=== PATIENT | female | born 1995 | race Caucasian/White ===

== ENCOUNTER 2017-04-19 04:21 | Emergency (ER) | payer SELFPAY ==
[~2017-04-19] VITALS: Ht 180.3 cm; Wt 72.0 kg
[2017-04-19 04:38] VITALS: BP 94/54; PULSE 110; RESP 21; TEMP 98.2; O2SAT 100
[2017-04-19] MEDS ORDERED: ZIPR20 PO (04:44)
[2017-04-19] MEDS ORDERED: VIST50CA PO (04:44)
[2017-04-19] MEDS ORDERED: DICY10 PO (04:44)
[2017-04-19] MEDS ORDERED: ORPHENADRINE INJ 60 MG/2 ML AMP IV ONE (04:45)
[2017-04-19] MEDS ORDERED: SODIUM CHLOR 0.9% 1000 ML INJ 1,000 ML IV SCH (04:45)
[2017-04-19] MEDS ORDERED: SODIUM CHLORIDE 0.9% FLUSH 10 ML FLUSH IV FLUSH PRN (04:45)
[2017-04-19 04:57] VITALS: O2SAT 96
--- NOTE | 2017-04-19 05:00 | PD ---
HPI Chief Complaint: Injury Time Seen by Provider: 04:38 Travel History International Travel<30 days: No Contact w/Intl Traveler<30days: No Traveled to known affect area: No History of Present Illness HPI Patient is a 21-year-old female presenting to emergency for evaluation of left lower leg muscle spasms. Patient states she twisted her knee yesterday and since that time she's been unable to stop the muscle spasms. Patient is diaphoretic, tachycardic, she states that she is not on any medications and has not use any drugs. She is tearful, agitated. She is not forthcoming with any other information. PFSH Past Medical History Bipolar Disorder: Yes Anxiety: Yes Depression: Yes Diminished Hearing: No ?: Not Past Surgical History Surgical History: No Previous Surgery Social History Alcohol Use: Yes (OCC) Tobacco Use: Yes Substance Use: Yes (MARIJUANA) Allergies-Medications (Allergen,Severity, Reaction): Coded Allergies: latex (Verified Allergy, Unknown, 04/19/17) Reported Meds & Prescriptions Reported Meds & Active Scripts Active Reported Vistaril (Hydroxyzine Pamoate) 50 Mg Cap 50 Mg PO TID Bentyl (Dicyclomine HCl) 10 Mg Cap 10 Mg PO QID Geodon (Ziprasidone) 20 Mg Cap 20 Mg PO BID Review of Systems Except as stated in HPI: all other systems reviewed are Neg Musculoskeletal: Positive: Myalgias, Arthralgias, Cramping Physical Exam Narrative GENERAL: Well-developed, well-nourished, agitated-appearing female. SKIN: Diaphoretic HEAD: Atraumatic. Normocephalic. EYES: Pupils equal and round. No scleral icterus. No injection or drainage. ENT: No nasal bleeding or discharge. Mucous membranes pink and moist. NECK: Trachea midline. No JVD. CARDIOVASCULAR: Tachycardic. RESPIRATORY: No accessory muscle use. Clear to auscultation. Breath sounds equal bilaterally. GASTROINTESTINAL: Abdomen soft, non-tender, nondistended. Hepatic and splenic margins not palpable. MUSCULOSKELETAL: Extremities without clubbing, cyanosis, or edema. No obvious deformities. NEUROLOGICAL: Awake and alert. No obvious cranial nerve deficits. Motor grossly within normal limits. Five out of 5 muscle strength in the arms and legs. Normal speech. PSYCHIATRIC: Appropriate mood and affect; insight and judgment normal. Data Data Last Documented VS Vital Signs Date Time Temp Pulse Resp B/P (MAP) Pulse Ox O2 Delivery O2 Flow Rate FiO2 04/19/17 06:19 124 19 154/89 (110) 96 Room Air 04/19/17 04:38 98.2 Orders Orders Complete Blood Count With Diff (04/19/17 04:45) Comprehensive Metabolic Panel (04/19/17 04:45) Creatine Kinase (Cpk) (04/19/17 04:45) Ecg Monitoring (04/19/17 04:45) Iv Access Insert/Monitor (04/19/17 04:45) Oximetry (04/19/17 04:45) Sodium Chloride 0.9% Flush (Ns Flush) (04/19/17 04:45) Sodium Chlor 0.9% 1000 Ml Inj (Ns 1000 M (04/19/17 04:45) Drug Screen, Random Urine (04/19/17 04:45) Orphenadrine Inj (Norflex Inj) (04/19/17 04:45) Ketorolac Inj (Toradol Inj) (04/19/17 06:00) Sodium Chlor 0.9% 1000 Ml Inj (Ns 1000 M (04/19/17 06:00) Ed Urine Pregnancytest Poc (04/19/17 06:21) Knee, Complete (4vws) (04/19/17 ) Labs Laboratory Tests Test 04/19/17 04:53 04/19/17 06:14 White Blood Count 14.3 TH/MM3 Red Blood Count 5.06 MIL/MM3 Hemoglobin 14.2 GM/DL Hematocrit 42.0 % Mean Corpuscular Volume 83.1 FL Mean Corpuscular Hemoglobin 28.0 PG Mean Corpuscular Hemoglobin Concent 33.7 % Red Cell Distribution Width 13.0 % Platelet Count 341 TH/MM3 Mean Platelet Volume 7.9 FL Neutrophils (%) (Auto) 64.7 % Lymphocytes (%) (Auto) 22.6 % Monocytes (%) (Auto) 8.7 % Eosinophils (%) (Auto) 3.1 % Basophils (%) (Auto) 0.9 % Neutrophils # (Auto) 9.3 TH/MM3 Lymphocytes # (Auto) 3.2 TH/MM3 Monocytes # (Auto) 1.2 TH/MM3 Eosinophils # (Auto) 0.4 TH/MM3 Basophils # (Auto) 0.1 TH/MM3 CBC Comment AUTO DIFF Differential Total Cells Counted 100 Neutrophils % (Manual) 63 % Band Neutrophils % 1 % Lymphocytes % 26 % Monocytes % 7 % Eosinophils % 2 % Neutrophils # (Manual) 9.3 TH/MM3 Myelocytes 1 % Differential Comment FINAL DIFF MANUAL Atypical Lymphocytes % Toxic Vacuolation PRESENT Platelet Estimate NORMAL Platelet Morphology Comment NORMAL Red Cell Morphology Comment NORMAL Blood Urea Nitrogen 20 MG/DL Creatinine 1.10 MG/DL Random Glucose 87 MG/DL Total Protein 7.9 GM/DL Albumin 4.3 GM/DL Calcium Level 9.2 MG/DL Alkaline Phosphatase 84 U/L Aspartate Amino Transf (AST/SGOT) 12 U/L Alanine Aminotransferase (ALT/SGPT) 18 U/L Total Bilirubin 0.8 MG/DL Sodium Level 137 MEQ/L Potassium Level 3.9 MEQ/L Chloride Level 103 MEQ/L Carbon Dioxide Level 24.9 MEQ/L Anion Gap 9 MEQ/L Estimat Glomerular Filtration Rate 62 ML/MIN Total Creatine Kinase 74 U/L MDM Medical Decision Making Medical Screen Exam Complete: Yes Emergency Medical Condition: Yes Interpretation(s) Vital Signs Date Time Temp Pulse Resp B/P (MAP) Pulse Ox O2 Delivery O2 Flow Rate FiO2 04/19/17 04:57 96 Room Air 04/19/17 04:38 98.2 110 21 94/54 (67) 100 Room Air Differential Diagnosis Intoxication versus muscle spasm versus metabolic abnormality versus other Narrative Course Patient is a 21-year-old female that presented to emergency department evaluation of possible spasms. Patient was diaphoretic, agitated, tearful on arrival. Labs and imaging ordered and pending to rule out electrolyte abnormality. Norflex ordered for muscle spasms. Patient was able to provide a urine sample, urine is negative. Urine drug screen is pending. Patient did admit to RN that she attempted to overdose on Benadryl at the beginning of February. She denies any illicit drug use or overmedication this time. Patient was given Toradol for pain and another liter of IV fluids. X-ray of the left knee ordered and pending. CBC with a white count of 14.3 Chemistry with a BUN/creatinine 20/1.11 otherwise no acute abnormalities. Patient continues to be tachycardic with a heart rate of 124. Patient is agitated and shaking. Care of patient transferred to Deysi KEENE. Mary Srivastava Apr 19, 2017 05:00
[2017-04-19 05:15] LABS: AUTOMATED NEUTROPHIL # 9.3 TH/MM3 (1.8-7.7); BASOPHIL # 0.1 TH/MM3 (0-0.2); BASOPHIL % 0.9 % (0.0-2.0); EOSINOPHIL # 0.4 TH/MM3 (0-0.4); EOSINOPHIL % 3.1 % (0.0-4.0); HEMOGLOBIN 14.2 GM/DL (11.6-15.3); LYMPH % 22.6 % (9.0-44.0); LYMPHOCYTE # 3.2 TH/MM3 (1.0-4.8); MEAN CELL VOLUME 83.1 FL (80.0-100.0); MEAN CORPUSCULAR HGB CONC 33.7 % (32.0-36.0); MEAN PLATELET VOLUME 7.9 FL (7.0-11.0); MONO % 8.7 % (0.0-8.0); MONOCYTE # 1.2 TH/MM3 (0-0.9); NEUT % 64.7 % (16.0-70.0); PLATELET COUNT 341 TH/MM3 (150-450); RED BLOOD COUNT 5.06 MIL/MM3 (4.00-5.30); WHITE BLOOD COUNT 14.3 TH/MM3 (4.0-11.0)
[2017-04-19 05:41] LABS: ALBUMIN 4.3 GM/DL (3.4-5.0); AST (GOT) 12 U/L (15-37); BICARBONATE 24.9 MEQ/L (21.0-32.0); BLOOD UREA NITROGEN 20 MG/DL (7-18); CALCIUM 9.2 MG/DL (8.5-10.1); CHLORIDE 103 MEQ/L (98-107); GLOMERULAR FILTRATION RATE 62 ML/MIN (>89); GLUCOSE,RANDOM 87 MG/DL (74-106); SODIUM (NA) 137 MEQ/L (136-145)
[2017-04-19 05:43] LABS: ALT (GPT) 18 U/L (10-53)
[2017-04-19 05:45] LABS: ALKALINE PHOSPHATASE 84 U/L (45-117); TOTAL BILIRUBIN ADULT 0.8 MG/DL (0.2-1.0); TOTAL PROTEIN 7.9 GM/DL (6.4-8.2)
[2017-04-19 05:48] LABS: BANDS 1 % (0-6); LYMPHOCYTES 26 % (9-44); MONOCYTES 7 % (0-8); MYELOCYTES 1 % (0-0); NEUTROPHIL # MANUAL DIFF 9.3 TH/MM3 (1.8-7.7); POLYS (SEG NEUTROPHILS) 63 % (16-70)
[2017-04-19 05:49] VITALS: BP 139/99; PULSE 120; RESP 20; O2SAT 96
[2017-04-19 05:49] LABS: TOXIC VACUOLATION PRESENT (NONE SEEN)
[2017-04-19] MEDS ORDERED: KETOROLAC TROMETHAMINE 30 MG/ML (IVP) VIAL IV PUSH ONE (06:00)
[2017-04-19] MEDS ORDERED: SODIUM CHLOR 0.9% 1000 ML INJ 1,000 ML IV ONE (06:00)
[2017-04-19 06:19] VITALS: BP 154/89; PULSE 124; RESP 19; O2SAT 96
--- NOTE | 2017-04-19 07:08 | RADRPT ---
EXAM DATE/TIME: 04/19/2017 06:36 [facility] COMPARISON: No previous studies available for comparison. INDICATIONS : Left leg spasms. Pain in posterior left knee. MEDICAL HISTORY : None. SURGICAL HISTORY : None. ENCOUNTER: Initial ACUITY: 1 day PAIN SCORE: 5/10 LOCATION: Left knee FINDINGS: No definite fractures, or dislocations are identified. No definite lytic or sclerotic lesion is seen. The joint spaces are well maintained. CONCLUSION: Unremarkable study. Herman Celaya MD on April 19, 2017 at 6:59 Board Certified Radiologist. This report was verified electronically.
[2017-04-19 07:53] VITALS: BP 140/73; PULSE 97; RESP 18; O2SAT 97
[2017-04-19] MEDS ORDERED: IBUP1TAB7 PO (07:55)
[2017-04-19] MEDS ORDERED: ROBA500T PO (07:55)
--- NOTE | 2017-04-19 07:59 | PD ---
Physical Exam Time Seen by Provider: 07:49 Narrative See YECENIA Preston's initial note for history of present illness, physical examination and evaluation. Report received at change of shift. Left knee x- ray and drug screen pending. Data Data Last Documented VS Vital Signs Date Time Temp Pulse Resp B/P (MAP) Pulse Ox O2 Delivery O2 Flow Rate FiO2 04/19/17 08:27 04/19/17 07:53 97 18 97 Room Air 04/19/17 04:38 98.2 Orders Orders Complete Blood Count With Diff (04/19/17 04:45) Comprehensive Metabolic Panel (04/19/17 04:45) Creatine Kinase (Cpk) (04/19/17 04:45) Ecg Monitoring (04/19/17 04:45) Iv Access Insert/Monitor (04/19/17 04:45) Oximetry (04/19/17 04:45) Sodium Chloride 0.9% Flush (Ns Flush) (04/19/17 04:45) Sodium Chlor 0.9% 1000 Ml Inj (Ns 1000 M (04/19/17 04:45) Drug Screen, Random Urine (04/19/17 04:45) Orphenadrine Inj (Norflex Inj) (04/19/17 04:45) Ketorolac Inj (Toradol Inj) (04/19/17 06:00) Sodium Chlor 0.9% 1000 Ml Inj (Ns 1000 M (04/19/17 06:00) Ed Urine Pregnancytest Poc (04/19/17 06:21) Knee, Complete (4vws) (04/19/17 ) Splint Or Brace Apply/Monitor (04/19/17 07:59) Crutches (04/19/17 07:59) Ed Discharge Order (04/19/17 07:59) Labs Laboratory Tests Test 04/19/17 04:53 04/19/17 06:14 White Blood Count 14.3 TH/MM3 Red Blood Count 5.06 MIL/MM3 Hemoglobin 14.2 GM/DL Hematocrit 42.0 % Mean Corpuscular Volume 83.1 FL Mean Corpuscular Hemoglobin 28.0 PG Mean Corpuscular Hemoglobin Concent 33.7 % Red Cell Distribution Width 13.0 % Platelet Count 341 TH/MM3 Mean Platelet Volume 7.9 FL Neutrophils (%) (Auto) 64.7 % Lymphocytes (%) (Auto) 22.6 % Monocytes (%) (Auto) 8.7 % Eosinophils (%) (Auto) 3.1 % Basophils (%) (Auto) 0.9 % Neutrophils # (Auto) 9.3 TH/MM3 Lymphocytes # (Auto) 3.2 TH/MM3 Monocytes # (Auto) 1.2 TH/MM3 Eosinophils # (Auto) 0.4 TH/MM3 Basophils # (Auto) 0.1 TH/MM3 CBC Comment AUTO DIFF Differential Total Cells Counted 100 Neutrophils % (Manual) 63 % Band Neutrophils % 1 % Lymphocytes % 26 % Monocytes % 7 % Eosinophils % 2 % Neutrophils # (Manual) 9.3 TH/MM3 Myelocytes 1 % Differential Comment FINAL DIFF MANUAL Atypical Lymphocytes % Toxic Vacuolation PRESENT Platelet Estimate NORMAL Platelet Morphology Comment NORMAL Red Cell Morphology Comment NORMAL Blood Urea Nitrogen 20 MG/DL Creatinine 1.10 MG/DL Random Glucose 87 MG/DL Total Protein 7.9 GM/DL Albumin 4.3 GM/DL Calcium Level 9.2 MG/DL Alkaline Phosphatase 84 U/L Aspartate Amino Transf (AST/SGOT) 12 U/L Alanine Aminotransferase (ALT/SGPT) 18 U/L Total Bilirubin 0.8 MG/DL Sodium Level 137 MEQ/L Potassium Level 3.9 MEQ/L Chloride Level 103 MEQ/L Carbon Dioxide Level 24.9 MEQ/L Anion Gap 9 MEQ/L Estimat Glomerular Filtration Rate 62 ML/MIN Total Creatine Kinase 74 U/L Urine Opiates Screen POS Urine Barbiturates Screen NEG Urine Amphetamines Screen NEG Urine Benzodiazepines Screen NEG Urine Cocaine Screen POS Urine Cannabinoids Screen NEG MDM Supervised Visit with PJ: No Narrative Course Report received from YECENIA Preston at change of shift. See her note for initial history of present illness, physical assessment and evaluation. 0758: Patient positive for opiates and cocaine. Left knee x-ray concludes: Knee X-Ray 04/19/17 0000 Signed Impressions: Service Date/Time: Wednesday, April 19, 2017 06:36 - CONCLUSION: Unremarkable study. Herman Celaya MD Provided a copy of the x-ray report. Thierry bandage and crutches provided for support. Robaxin and ibuprofen prescribed for home. Instructed patient to follow up with orthopedics symptoms persist greater than 7-10 days. Instructed patient to follow up with primary care provider. Patient verbalizes understanding and agreement with treatment plan. Patient is medically cleared and stable for discharge. Discussed reasons to return to the emergency department. Patient agrees with treatment plan. The patients vital signs are stable and the patient is stable for outpatient follow-up and treatment. Patient discharged home, stable and in no acute distress. Diagnosis Primary Impression: Left knee injury Qualified Codes: S89.92XA - Unspecified injury of left lower leg, initial encounter Additional Impressions: Muscle spasm of left lower extremity Polysubstance abuse Referrals: [facility] Primary Care Physician Patient Instructions: General Instructions, Knee Sprain (ED), Muscle Spasm (ED) Additional Instruction: Tylenol or ibuprofen as needed and as directed to reduce pain and inflammation Rest, ice, compress, and elevate extremity to decrease pain and inflammation Knee brace for support Crutches for support Avoid aggravating activity; increase activity as tolerated Follow-up with primary care provider Follow-up with orthopedics Return to the emergency department immediately with worsening symptoms Med/Other Pt SpecificInfo: Prescription(s) given Scripts Ibuprofen (Ibuprofen) 800 Mg Tab 800 MG PO Q6HR Y for PAIN, #30 TAB 0 Refills Prov: Deysi Moore 04/19/17 Methocarbamol (Robaxin) 500 Mg Tab 500 MG PO QID Y for MUSCLE SPASM, #30 TAB 0 Refills Prov: Deysi Moore 04/19/17 Disposition: 01 DISCHARGE HOME Condition: Stable Deysi Moore Apr 19, 2017 07:59
== END 2017-04-19 08:29 | disposition home or self-care (01) ==
LOC: NEPD 04:21
DX: M62.831 Muscle spasm of calf (principal); S89.92XA Unspecified injury of left lower leg, initial encounter; F19.10 Other psychoactive substance abuse, uncomplicated; R00.0 Tachycardia, unspecified; F31.9 Bipolar disorder, unspecified; F41.9 Anxiety disorder, unspecified; X50.1XXA Overexertion from prolonged static or awkward postures, initial encounter; Z72.0 Tobacco use; Z79.899 Other long term (current) drug therapy
CPT/HCPCS: 73564; 80053; 80307; 82550; 84703; 85007; 85027; 96361; 96374; 96375; 99284; E0113; J1885; J2360; J7030

== ENCOUNTER 2017-08-06 03:08 | Emergency (ER) | payer OTHER ==
[~2017-08-06 03:08] MED LIST: DICY10 PO; IBUP1TAB7 PO; ROBA500T PO; VIST50CA PO; ZIPR20 PO
[2017-08-06 03:19] VITALS: BP 135/77; PULSE 97; RESP 16; O2SAT 96
[2017-08-06] MEDS ORDERED: LACTATED RINGER'S 1000 ML INJ 1,000 ML IV SCH (03:24)
[2017-08-06 03:30] VITALS: O2SAT 98
[2017-08-06] MEDS ORDERED: MORPHINE SULFATE 4 MG/ML INJ IV PUSH ONE (03:30)
[2017-08-06] MEDS ORDERED: SODIUM CHLORIDE 0.9% FLUSH 10 ML FLUSH IVF PRN (03:30)
--- NOTE | 2017-08-06 04:02 | RADRPT ---
EXAM DATE/TIME: 08/06/2017 03:50 [facility] COMPARISON: No previous studies available for comparison. INDICATIONS : Shortness of breath. MEDICAL HISTORY : None. SURGICAL HISTORY : None. ENCOUNTER: Initial ACUITY: 1 day PAIN SCORE: 7/10 LOCATION: Bilateral chest FINDINGS: A single view of the chest demonstrates the lungs to be symmetrically aerated without evidence of mas s, infiltrate or effusion. The cardiomediastinal contours are unremarkable. Osseous structures are intact. CONCLUSION: No acute disease. Dakota Haines MD on August 06, 2017 at 4:00 Board Certified Radiologist. This report was verified electronically.
[2017-08-06 04:03] LABS: AUTOMATED NEUTROPHIL # 3.9 TH/MM3 (1.8-7.7); BASOPHIL # 0.1 TH/MM3 (0-0.2); BASOPHIL % 1.3 % (0.0-2.0); EOSINOPHIL # 0.3 TH/MM3 (0-0.4); EOSINOPHIL % 4.3 % (0.0-4.0); HEMATOCRIT 38.3 % (35.0-46.0); HEMOGLOBIN 13.1 GM/DL (11.6-15.3); LYMPHOCYTE # 1.8 TH/MM3 (1.0-4.8); MEAN CELL VOLUME 75.2 FL (80.0-100.0); MEAN CORPUSCULAR HEMOGLOBIN 25.8 PG (27.0-34.0); MEAN CORPUSCULAR HGB CONC 34.2 % (32.0-36.0); MEAN PLATELET VOLUME 8.4 FL (7.0-11.0); MONO % 11.5 % (0.0-8.0); MONOCYTE # 0.8 TH/MM3 (0-0.9); NEUT % 56.9 % (16.0-70.0); PLATELET COUNT 297 TH/MM3 (150-450); RED BLOOD COUNT 5.09 MIL/MM3 (4.00-5.30); RED CELL DISTRIBUTION WIDTH 15.1 % (11.6-17.2); WHITE BLOOD COUNT 6.8 TH/MM3 (4.0-11.0)
[2017-08-06 04:18] LABS: ALBUMIN 3.7 GM/DL (3.4-5.0); AST (GOT) 343 U/L (15-37); BICARBONATE 19.3 MEQ/L (21.0-32.0); BLOOD UREA NITROGEN 17 MG/DL (7-18); CALCIUM 9.5 MG/DL (8.5-10.1); CHLORIDE 108 MEQ/L (98-107); CREATININE 0.84 MG/DL (0.50-1.00); GLOMERULAR FILTRATION RATE 83 ML/MIN (>89); GLUCOSE,RANDOM 73 MG/DL (74-106); SODIUM (NA) 139 MEQ/L (136-145)
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
[2017-08-06 04:19] LABS: ALT (GPT) 386 U/L (10-53)
[2017-08-06] MEDS ORDERED: IOHEXOL 350 MG/ML 10 ML VIAL (for RAD DIAG) IVCONTRAST ONE (04:20)
[2017-08-06 04:22] LABS: ALKALINE PHOSPHATASE 147 U/L (45-117); TOTAL BILIRUBIN ADULT 1.4 MG/DL (0.2-1.0); TOTAL PROTEIN 7.9 GM/DL (6.4-8.2)
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
[2017-08-06] MEDS ORDERED: KETOROLAC TROMETHAMINE 30 MG/ML (IVP) VIAL IV PUSH ONE (04:45)
[2017-08-06] MEDS ORDERED: SODIUM CHLOR 0.9% 1000 ML INJ 1,000 ML IV ONE ×2 (05:15)
[2017-08-06 06:33] LABS: ALBUMIN 2.8 GM/DL (3.4-5.0); ALKALINE PHOSPHATASE 114 U/L (45-117); ALT (GPT) 295 U/L (10-53); AST (GOT) 263 U/L (15-37); BLOOD UREA NITROGEN 15 MG/DL (7-18); CALCIUM 7.8 MG/DL (8.5-10.1); CHLORIDE 111 MEQ/L (98-107); CREATININE 0.63 MG/DL (0.50-1.00); GLOMERULAR FILTRATION RATE 116 ML/MIN (>89); GLUCOSE,RANDOM 67 MG/DL (74-106); SODIUM (NA) 141 MEQ/L (136-145); TOTAL BILIRUBIN ADULT 1.2 MG/DL (0.2-1.0); TOTAL PROTEIN 6.1 GM/DL (6.4-8.2)
[2017-08-06 06:48] VITALS: BP 135/62; PULSE 98; RESP 16; O2SAT 98
[2017-08-06 07:22] VITALS: BP 118/73; PULSE 95; RESP 19; O2SAT 97
[2017-08-06 07:29] VITALS: RESP 17
[2017-08-06 07:38] LABS: BACTERIA, URINE RARE /hpf; BILIRUBIN, URINE NEG (NEG); BLOOD, URINE NEG (NEG); GLUCOSE,URINE NEG (NEG); KETONE, URINE 40 mg/dL (NEG); MUCUS URINE FEW /lpf (OCC); NITRITE,URINE NEG (NEG); RENAL EPITHELIAL CELLS <1 /hpf; SQUAMOUS EPITHELIAL CELL URINE 4 /hpf (0-5); URINE COLOR YELLOW (YELLW/STRAW); URINE LEUKOCYTE ESTERASE LARGE (NEG)
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
--- NOTE | 2017-08-06 14:07 | PD ---
Physical Exam Date Seen by Provider: August 06, 2017 Time Seen by Provider: 14:06 Narrative 22-year-old female previously Alberts acted and medically cleared for psychiatric evaluation, has been seen and evaluated by psychiatric staff and deemed psychiatrically stable for discharge at this time. Patient remains medically stable for discharge. Follow-up will be based on psychiatric note. Data Data Last Documented VS Vital Signs Date Time Temp Pulse Resp B/P (MAP) Pulse Ox O2 Delivery O2 Flow Rate FiO2 08/06/17 07:29 17 08/06/17 07:22 95 118/73 (88) 97 Room Air Orders Orders Complete Blood Count With Diff (08/06/17 03:24) Alcohol (Ethanol) (08/06/17 03:24) Chest, Single Ap (08/06/17 03:24) Ct Brain W/O Iv Contrast(Rout) (08/06/17 03:24) Ct Cerv Spine W/O Contrast (08/06/17 03:24) Ct Abd/Pel W Iv Contrast(Rout) (08/06/17 03:24) Ct Thorax/ Chest W Iv Contrast (08/06/17 03:24) Apply Cervical Collar (08/06/17 03:24) Iv Access Insert/Monitor (08/06/17 03:24) Ecg Monitoring (08/06/17 03:24) Oximetry (08/06/17 03:24) Oxygen Administration (08/06/17 03:24) Morphine Inj (Morphine Inj) (08/06/17 03:30) Lactated Ringer's 1000 Ml Inj (Lr 1000 M (08/06/17 03:24) Sodium Chloride 0.9% Flush (Ns Flush) (08/06/17 03:30) Drug Screen, Random Urine (08/06/17 03:24) Comprehensive Metabolic Panel (08/06/17 03:24) Urinalysis - C+S If Indicated (08/06/17 03:24) Ed Urine Pregnancytest Poc (08/06/17 03:24) Ketorolac Inj (Toradol Inj) (08/06/17 04:45) Iohexol 350 Inj (Omnipaque 350 Inj) (08/06/17 04:20) Sodium Chlor 0.9% 1000 Ml Inj (Ns 1000 M (08/06/17 05:15) Sodium Chlor 0.9% 1000 Ml Inj (Ns 1000 M (08/06/17 05:15) Comprehensive Metabolic Panel (08/06/17 05:54) Urine Culture (08/06/17 07:00) Psych Screen (08/06/17 10:18) Diet Regular Basic (08/06/17 Lunch) Labs Laboratory Tests Test 08/06/17 03:31 08/06/17 05:55 08/06/17 07:00 White Blood Count 6.8 TH/MM3 Red Blood Count 5.09 MIL/MM3 Hemoglobin 13.1 GM/DL Hematocrit 38.3 % Mean Corpuscular Volume 75.2 FL Mean Corpuscular Hemoglobin 25.8 PG Mean Corpuscular Hemoglobin Concent 34.2 % Red Cell Distribution Width 15.1 % Platelet Count 297 TH/MM3 Mean Platelet Volume 8.4 FL Neutrophils (%) (Auto) 56.9 % Lymphocytes (%) (Auto) 26.0 % Monocytes (%) (Auto) 11.5 % Eosinophils (%) (Auto) 4.3 % Basophils (%) (Auto) 1.3 % Neutrophils # (Auto) 3.9 TH/MM3 Lymphocytes # (Auto) 1.8 TH/MM3 Monocytes # (Auto) 0.8 TH/MM3 Eosinophils # (Auto) 0.3 TH/MM3 Basophils # (Auto) 0.1 TH/MM3 CBC Comment DIFF FINAL Differential Comment Blood Urea Nitrogen 17 MG/DL 15 MG/DL Creatinine 0.84 MG/DL 0.63 MG/DL Random Glucose 73 MG/DL 67 MG/DL Total Protein 7.9 GM/DL 6.1 GM/DL Albumin 3.7 GM/DL 2.8 GM/DL Calcium Level 9.5 MG/DL 7.8 MG/DL Alkaline Phosphatase 147 U/L 114 U/L Aspartate Amino Transf (AST/SGOT) 343 U/L 263 U/L Alanine Aminotransferase (ALT/SGPT) 386 U/L 295 U/L Total Bilirubin 1.4 MG/DL 1.2 MG/DL Sodium Level 139 MEQ/L 141 MEQ/L Potassium Level 3.8 MEQ/L 3.6 MEQ/L Chloride Level 108 MEQ/L 111 MEQ/L Carbon Dioxide Level 19.3 MEQ/L 19.0 MEQ/L Anion Gap 12 MEQ/L 11 MEQ/L Estimat Glomerular Filtration Rate 83 ML/MIN 116 ML/MIN Ethyl Alcohol Level LESS THAN 3 MG/DL Urine Color YELLOW Urine Turbidity HAZY Urine pH 6.0 Urine Specific [place] GREATER THAN 1.050 Urine Protein 30 mg/dL Urine Glucose (UA) NEG mg/dL Urine Ketones 40 mg/dL Urine Occult Blood NEG Urine Nitrite NEG Urine Bilirubin NEG Urine Urobilinogen 2.0 MG/DL Urine Leukocyte Esterase LARGE Urine RBC 8 /hpf Urine WBC 65 /hpf Urine Squamous Epithelial Cells 4 /hpf Urine Renal Epithelial Cells <1 /hpf Urine Bacteria RARE /hpf Urine Mucus FEW /lpf Microscopic Urinalysis Comment CULTURE INDICATED Urine Opiates Screen POS Urine Barbiturates Screen NEG Urine Amphetamines Screen POS Urine Benzodiazepines Screen POS Urine Cocaine Screen NEG Urine Cannabinoids Screen NEG MDM Medical Record Reviewed: Yes Supervised Visit with PJ: Yes Narrative Course 22-year-old female previously Alberts acted and medically cleared for psychiatric evaluation, has been seen and evaluated by psychiatric staff and deemed psychiatrically stable for discharge at this time. Patient remains medically stable for discharge. Follow-up will be based on psychiatric note. Diagnosis Primary Impression: Mood disorder, drug-induced Additional Impression: IV drug user Referrals: [facility] Patient Instructions: General Instructions Med/Other Pt SpecificInfo: No Meds Exist/No RX given Disposition: DISCHARGE HOME Condition: Stable Lemuel Daigle August 06, 2017 14:07
== END 2017-08-06 16:32 | disposition home or self-care (01) ==
LOC: NEPE 03:08 → NEPJ 16:32
DX: F19.94 Other psychoactive substance use, unspecified with psychoactive substance-induced mood disorder (principal); T14.91XA Suicide attempt, initial encounter; R82.99 Other abnormal findings in urine; M25.512 Pain in left shoulder; M54.2 Cervicalgia; M25.552 Pain in left hip; R79.89 Other specified abnormal findings of blood chemistry; V89.2XXA Person injured in unspecified motor-vehicle accident, traffic, initial encounter; F31.9 Bipolar disorder, unspecified; F41.8 Other specified anxiety disorders; Z72.0 Tobacco use
CPT/HCPCS: 70450; 71045; 71260; 72125; 74177; 80053; 80307; 81001; 84703; 85025; 87086; 96361; 96374; 96375; 99285; J1885; J2270; J7030; J7120; Q9967

== ENCOUNTER 2017-08-06 17:50 | Emergency (ER) | payer OTHER ==
[~2017-08-06] VITALS: Ht 180.3 cm; Wt 60.0 kg
[2017-08-06 17:56] VITALS: BP 122/63; PULSE 97; RESP 16; TEMP 98; O2SAT 100
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
== END 2017-08-06 18:44 | disposition home or self-care (01) ==
LOC: NEPD 17:50
DX: F19.10 Other psychoactive substance abuse, uncomplicated (principal); Z59.0 Homelessness
CPT/HCPCS: 99281